=== PATIENT | female | born 1955 | race Caucasian/White ===

== ENCOUNTER → 2020-11-11 | Day surgery (SDC) | payer OTHER ==
[~2020-11-11] VITALS: Ht 160 cm; Wt 72.6 kg
[~2020-11-11] MED LIST: ASPIR 8181 MG PO; ATORVASTATIN CA10 MG PO; CALCIUM PLUS D PO; CARVEDILOL12.5 MG PO; COREG12.5 MG PO; LISINOPRIL 10MG10 MG PO; MVI PO; NORCO 5-325 TA1 EACH PO; ONDANSETRON ODT8 MG PO; SYNTHROID50 MCG PO
[2020-11-11 09:03] LABS: HCT 37.8 % (37.0-47.0); HGB 12.4 g/dl (12.5-16.0); MCH 28.1 pg (25.0-31.0); MCHC 32.8 g/dL (32.0-36.0); MCV 85.7 fL (78.0-100.0); RBC 4.41 M/uL (4.20-5.40); RDW 12.7 % (11.5-14.0); WBC 4.3 K/uL (4.0-10.5)
[2020-11-11 09:17] LABS: ALBUMIN 3.6 g/dL (3.4-5.0); BILIRUBIN - TOTAL 0.5 mg/dL (0.2-1.0); BUN/CREAT RATIO (CALC) 24.2 RATIO; CREATININE 0.66 mg/dL (0.51-0.95); GLOBULIN (CALCULATION) 3.1 g/dL; POTASSIUM 3.9 mmol/L (3.5-5.1); TOTAL PROTEIN 6.7 g/dL (6.4-8.2)
== END | disposition home or self-care (01) ==
LOC: FAS 08:23
PROVIDERS: Surgery
DX: K80.10 Calculus of gallbladder with chronic cholecystitis without obstruction (principal); K82.8 Other specified diseases of gallbladder; I10 Essential (primary) hypertension; E78.5 Hyperlipidemia, unspecified; E78.00 Pure hypercholesterolemia, unspecified; E03.9 Hypothyroidism, unspecified; K21.9 Gastro-esophageal reflux disease without esophagitis; M19.90 Unspecified osteoarthritis, unspecified site; J30.9 Allergic rhinitis, unspecified; Z79.82 Long term (current) use of aspirin; Z79.899 Other long term (current) drug therapy; Z88.1 Allergy status to other antibiotic agents; Z90.89 Acquired absence of other organs; Z90.722 Acquired absence of ovaries, bilateral
CPT/HCPCS: 36415; 74300; 80053; C1758; J2250; J2405; J2704; J2710; J3010; J7120; Q9967